=== PATIENT | male | born 1935 | race Caucasian/White ===

== ENCOUNTER 2017-06-19 15:15 | Emergency (ER) | payer MEDICARE, MEDICAID ==
[~2017-06-19] VITALS: Ht 157.5 cm; Wt 54.5 kg
[2017-06-19] MEDS ORDERED: HYDR25TA PO (15:23)
[2017-06-19] MEDS ORDERED: HYDR25TA84 PO (15:23)
[2017-06-19] MEDS ORDERED: METO50 PO (15:23)
[2017-06-19] MEDS ORDERED: ATOR20TA86 PO (15:23)
[2017-06-19 15:50] LABS: BASOPHILS % (AUTO) 1.5 % (0.0-2.0); EOSINOPHILS % (AUTO) 8.2 % (1.0-6.0); HEMATOCRIT 45.2 % (41-53); HEMOGLOBIN 14.9 g/dL (13.5-17.5); LYMPHOCYTES # (AUTO) 4.2 K/uL (1.0-4.8); LYMPHOCYTES % (AUTO) 37.4 % (22.0-44.0); MEAN CORPUSCULAR HEMOGLOBIN 27.8 pg (26.0-34.0); MEAN CORPUSCULAR VOLUME 84 fL (80-100); MONOCYTES # (AUTO) 0.8 K/uL (0.1-1.0); MONOCYTES % (AUTO) 7.5 % (2.0-9.0); NEUTROPHILS # (AUTO) 5.1 K/uL (1.8-7.7); NEUTROPHILS % (AUTO) 45.4 % (40.0-70.0); PLATELET COUNT (AUTO) 208 K/uL (150-450); RED BLOOD CELL COUNT(AUTO) 5.36 MIL/uL (4.50-5.90); RED CELL DISTRIBUTION WIDTH 12.8 % (11.5-14.5); WHITE BLOOD COUNT (AUTO) 11.2 K/uL (4.5-11.0)
[2017-06-19 16:01] LABS: CALCIUM, TOTAL 9.1 mg/dL (8.8-10.5); CREATININE 1.31 mg/dL (0.60-1.30); POTASSIUM 3.3 mmol/L (3.5-5.1)
[2017-06-19 16:06] LABS: ALBUMIN 3.7 g/dL (3.4-5.0); BILIRUBIN,TOTAL 0.6 mg/dL (0.1-1.0); TOTAL PROTEIN, SERUM 8.2 g/dL (6.4-8.2)
[2017-06-19] MEDS ORDERED: POTASSIUM CHLORIDE 20 MEQ ER TABLET PO ONE (18:15)
[2017-06-19 20:06] VITALS: BP 148/76
== END 2017-06-19 20:25 | disposition home or self-care (01) ==
LOC: EMS 15:17
DX: R42 Dizziness and giddiness (principal); E87.6 Hypokalemia; R07.89 Other chest pain; R53.1 Weakness; R11.0 Nausea; E78.00 Pure hypercholesterolemia, unspecified; I10 Essential (primary) hypertension; Z87.19 Personal history of other diseases of the digestive system
CPT/HCPCS: 70450; 93005; 99285

== ENCOUNTER 2017-07-11 07:12 | Emergency (ER) | payer MEDICAID, MEDICARE ==
[~2017-07-11] VITALS: Ht 154.9 cm; Wt 54.5 kg
[~2017-07-11 07:12] MED LIST: ATOR20TA86 PO; HYDR25TA PO; HYDR25TA84 PO; METO50 PO
[2017-07-11] MEDS ORDERED: MECL12.585 PO (07:22)
[2017-07-11] MEDS ORDERED: HydrOXYzine PAMOATE 50 MG CAPSULE PO ONE (07:30)
[2017-07-11] MEDS ORDERED: METOPROLOL TARTRATE 50 MG TABLET PO ONE (07:30)
[2017-07-11] MEDS ORDERED: ACETAMINOPHEN 325 MG TABLET PO ONE (07:30)
[2017-07-11] MEDS ORDERED: HYDROCHLOROTHIAZIDE 25 MG TABLET PO ONE (07:30)
[2017-07-11] MEDS ORDERED: HydrALAZINE HCL 25 MG TABLET PO ONE (07:45)
[2017-07-11 09:12] VITALS: BP 142/71
== END 2017-07-11 09:19 | disposition home or self-care (01) ==
LOC: EMS 07:14
DX: I10 Essential (primary) hypertension (principal); R20.0 Anesthesia of skin; E78.00 Pure hypercholesterolemia, unspecified
CPT/HCPCS: 99284